=== PATIENT | female | born 1985 | race Two or more races ===

== ENCOUNTER → 2016-11-23 | Outpatient (CLI) | payer OTHER ==
--- NOTE | ~2016-11-23 | CT57 ---
[facility] A Service of [facility] RADIOLOGY TEXT RESULTS PATIENT: CINDI RODRIGUEZ LOCATION: [facility] : 87 UNIT #: [id number] AGE: [address]: Jamin Katz MD SEX: F ORDER DR: [id number] [address] [address] [id number] O MR#: [id number] [facility] #: [id number] NAME: CINDI RODRIGUEZ : 1985 SEX: F STUDY DATE/TIME: 11/23/2016 10:55 UNIT: [facility] ROOM: STUDY DESCRIPTION: CT Chest Wo Cont Attending Physician: Jamin Katz M.D. Referring Physician: Jamin Katz M.D. Ordering Physician: Jamin Katz M.D. Primary Care Physician: Primary Care Physician No MEDICAL IMAGING REPORT This report is preliminary unless electronic signature is present EXAM CT of the chest no contrast 11/23/2016. INDICATIONS 31-year-old female with history of Hodgkin's lymphoma. History of neck surgery. TECHNIQUE Noncontrast CT of the chest was performed. This CT exam was performed with one or more of the following radiation dose reduction techniques: automatic exposure control, adjustment of mA and/or kV according to patient size, and iterative reconstruction. COMPARISON We have no comparison studies. FINDINGS CT CHEST: The patient was imaged without contrast secondary to a contrast allergy. The lungs are clear. No effusion. No suspicious pulmonary nodule. Included thyroid unremarkable. No pericardial effusion. Reactive-appearing axillary nodes. No mediastinal adenopathy. Aorta unremarkable. Included upper abdomen unremarkable. Please see the separately dictated CT abdomen and pelvis same date for further details. Osseous structures demonstrate no suspicious bone lesion. IMPRESSION [facility] A Service of [facility] & [facility] RADIOLOGY TEXT RESULTS PATIENT: CINDI RODRIGUEZ LOCATION: [facility] : 87 UNIT #: [id number] AGE: [address]: Jamin Katz MD SEX: F ORDER DR: Negative CT scan chest without contrast. No adenopathy or suspicious pulmonary nodule. Please note that this report did not become available for review or signature until 11/28/16 Dictated by... Karan Chaudhry M.D. THIS IS AN ELECTRONICALLY VERIFIED REPORT Karan Chaudhry M.D. at 11/28/2016 10:46 PM Lola TD: 11/23/2016 15:46 JOB #: [id number] MEDICAL IMAGING REPORT Page 1 of 1 COPY
--- NOTE | ~2016-11-23 | CT4 ---
[facility] A Service of [facility] & [facility] RADIOLOGY TEXT RESULTS PATIENT: CINDI RODRIGUEZ LOCATION: [facility] : 87 UNIT #: [id number] AGE: [address]: Jamin Katz MD SEX: F ORDER DR: [id number] [place] [id number] [facility] [place], [place] [address] [id number] O MR#: [id number] [facility] #: [id number] NAME: CINDI RODRIGUEZ : 1985 SEX: F STUDY DATE/TIME: 11/23/2016 10:55 UNIT: [facility] ROOM: STUDY DESCRIPTION: CT Abd and Pelv Wo Cont Attending Physician: Jamin Katz M.D. Referring Physician: Jamin Katz M.D. Ordering Physician: Jamin Katz M.D. Primary Care Physician: Primary Care Physician No MEDICAL IMAGING REPORT This report is preliminary unless electronic signature is present EXAM Abdomen and pelvis CT no contrast 11/23/2016 INDICATION 31-year-old female with history of Hodgkin's lymphoma. History of neck surgery. Observation for suspected neoplasm. Active malignancy. TECHNIQUE Noncontrast abdomen and pelvis CT was performed. This CT exam was performed with one or more of the following radiation dose reduction techniques: Automatic exposure control, adjustment of mA and/or kV according to patient size, and iterative reconstruction. COMPARISON We have no comparison studies. FINDINGS CT ABDOMEN: The patient was scanned without contrast due to a contrast allergy. Included lung bases are clear. Please see the separately dictated CT chest same date for further details regarding chest findings. No effusion. Aorta unremarkable. Spleen, adrenal glands and pancreas and gallbladder are unremarkable. Liver unremarkable. Kidneys are normal. CT PELVIS: No retroperitoneal adenopathy. Bladder unremarkable. No adnexal mass. Follicles present in the right ovary. No drainable fluid collection in the pelvis or free fluid. Bowel demonstrates no obstruction or focal inflammatory change and the appendix is normal. There is no inguinal adenopathy or fluid collection. There is no suspicious bone lesion. IMPRESSION 1. Negative noncontrast abdomen and pelvis CT. No evidence of metastatic disease in the abdomen or pelvis. STS. [facility] A Service of [facility] & [facility] RADIOLOGY TEXT RESULTS PATIENT: CINDI RODRIGUEZ LOCATION: [facility] : 87 UNIT #: [id number] AGE: [address]: Jamin Katz MD SEX: F ORDER DR: 2. Sensitivity degraded by lack of intravenous contrast but the patient has a contrast allergy. Please note that this report did not become available for review or signature until 11/28/16 Dictated by... Karan Chaudhry M.D. THIS IS AN ELECTRONICALLY VERIFIED REPORT Karan Chaudhry M.D. at 11/28/2016 10:46 PM Ray TD: 11/23/2016 16:25 JOB #: [id number] MEDICAL IMAGING REPORT Page 1 of 1 COPY
== END | disposition home or self-care (01) ==
LOC: CCAT 10:16
DX: C81.90 Hodgkin lymphoma, unspecified, unspecified site (principal); F32.9 Major depressive disorder, single episode, unspecified
CPT/HCPCS: 71250; 74176